=== PATIENT | female | born 1960 | race Two or more races ===

== ENCOUNTER → 2024-08-17 | Outpatient (REF) | payer BC, OTHER ==
[~2024-08-17] MED LIST: ACET-1349 PO; ACET-897 PO; ALCOPAD25 TOP; AMLO-354 PO; BASA100I SC; CALC-190 PO; CEFD1CAP9 PO; GLUCMIS7 XX; GLYB5TAB6 PO; IBUP200T46 PO; INSU100I24 SQ; INSU100V6 SQ; INSUH10VL SC; INSULADS INJ; JARD1TAB3 PO; LANC1COM MC; METF10004 PO; OMEP-173 PO; OXYC1TAB23 PO; ROSU10TA61 PO; TIRZ5PEN SQ; TRAD5TAB PO
== END ==
LOC: M LAB REF 14:35
PROVIDERS: ATTEND Internal Medicine Endocrinology, Diabetes & Metabolism
DX: E04.2 Nontoxic multinodular goiter (principal)

== ENCOUNTER → 2025-08-16 | Outpatient (CLI) | payer BC ==
[~2025-08-16] MED LIST changes: +AMLO-325 PO; -AMLO-354 PO; -ROSU10TA61 PO; +ROSU10TA90 PO
== END ==
LOC: M RAD 10:55
PROVIDERS: ATTEND Nurse Practitioner Family
DX: E04.2 Nontoxic multinodular goiter (principal)